=== PATIENT | female | born 1945 | race Caucasian/White ===

== ENCOUNTER → 2016-11-11 | Outpatient (CLI) | payer OTHER ==
--- NOTE | 2016-11-11 16:05 | MA ---
Bilateral Digital Diagnostic Mammography with Supplementary Views of the Left Breast CLINICAL HISTORY: 71-year-old female whose physician felt a nodule during a routine breast exam suspe cted to be "probable cyst" in the 2 o'clock position, discovered 10 days ago. There is no family hist ory of breast cancer. TECHNIQUE: Digital CC and MLO views of each breast, true mediolateral view of the left breast, and sp ot compression craniocaudal and true mediolateral views of the outer left breast were obtained and co mpared to previous studies dated October 08, 2014, June 20, 2013, June 07, 2012, January 18, 2011, and December 06, 2009. Additionally, the exam was CAD checked. A triangular marker has been placed o cherelle a mole on the skin surface of the left breast at the area of palpable concern. Breast Density: Type A (Adipose-Replaced). CAD Evaluation: Reviewed. FINDINGS: The breasts are predominately adipose-replaced with the exception of some stable fibrogland ular tissue seen in the outer aspects of each breast. There are also some stable calcifications ident ified in the outer aspects of each breast, left more numerous than right; however, reassuringly stabl e over multiple previous years' studies. With reference to the area of palpable concern, there is maribell e patchy parenchymal asymmetry in this location, although the appearance is unchanged over several ye ars. Nonetheless, targeted sonography will be subsequently performed. IMPRESSION: Needs additional imaging evaluation of the 2 o'clock position of the left breast over an area of palpable concern. BI-RADS Category 0. RECOMMENDATION: Targeted sonography. [facility] will send a result letter to the patient.
--- NOTE | 2016-11-11 16:34 | US ---
Left Breast Sonography CLINICAL HISTORY: 71-year-old female whose physician felt an area of palpable asymmetry in the 2 o'cl ock position of the left breast. TECHNIQUE: A linear 12 MHz transducer was used to sonographically evaluate the upper outer portion of the left breast. Both the architecture internship and the sonologist performed the exam. Cine clips are acquired in rad and arad orthogonal planes. COMPARISON STUDY: This is correlated with multiple preceding mammograms, including today's diagnostic study which demonstrates some stable fibroglandular and adipose tissue in the upper outer left breas t. FINDINGS: The area of palpable concern appears to correspond to some mixed fibroglandular and fibroad ipose tissue which would also correspond to the stable mammographic findings, and this may represent an area of fibroadenolipomatous tissue. There is no unusual acoustic shadowing. There is no focal ane choic cyst. I have also reviewed the mammographic and sonographic findings with Dr. Vinnie Butcher who agrees with the above interpretation and would suggest continued clinical correlation and consideration of follow-up sonography in six months to assure stability of these likely benign findings. Assessment of any area of palpable concern should also be based upon is clinical merits, and if there is further clinical c oncern, a surgical opinion could be sought. IMPRESSION: Likely benign sonographic findings which corresponds to mammographic features which have been reassuringly stable over multiple previous years. Recommendation: 1. Continued clinical correlation. The patient was also encouraged to perform monthly breast self exa m. 2. Sonography in six months to assure stability.
== END ==
LOC: CIMAGING 13:21
PROVIDERS: ATTEND Family Medicine
DX: Z12.39 Encounter for other screening for malignant neoplasm of breast (principal); N63 Unspecified lump in breast
CPT/HCPCS: 76641; G0204

== ENCOUNTER → 2017-05-09 | Outpatient (CLI) | payer OTHER | LOC: CIMAGING 13:49 | PROVIDERS: ATTEND Family Medicine | DX: R92.8 Other abnormal and inconclusive findings on diagnostic imaging of breast (principal) | CPT/HCPCS: 76641-PO ==

== ENCOUNTER → 2018-11-30 | Outpatient (CLI) | payer OTHER | LOC: CIMAGING 10:02 | PROVIDERS: ATTEND Family Medicine | DX: Z12.31 Encounter for screening mammogram for malignant neoplasm of breast (principal) ==